=== PATIENT | female | born 1995 | race Hispanic/Latino ===

== ENCOUNTER 2024-01-27 20:54 | Emergency (ER) | payer SELFPAY ==
[2024-01-27 20:57] VITALS: BP 143/82; PULSE 98; RESP 16; TEMP 37.3; O2SAT 97; BMI 43.8
[2024-01-27 21:33] LABS: Bacteria Urine Many (>30); RBC Urine 5-10/HPF (0-5/HPF); Squamous Epithelial Cell Urine 10-30 /HPF (0-5/HPF); Urine Volume 10mL (spun); WBC Urine 30-100/HPF (0-5/HPF)
[2024-01-27 21:34] LABS: Mucus Urine 1+ (Negative)
--- NOTE | 2024-01-27 22:03 | ED.FEMALEGU ---
HPI - Female Genitourinary General Chief complaint: Urogenital-Female Stated complaint: UTI, back pain Time Seen by Provider: 01/27/24 21:04 Source: patient Mode of arrival: Ambulatory History of Present Illness HPI Narrative: 28-year-old female with no reported past medical history presents by private vehicle from home for 3-4 days of urinary frequency and 1 day of upper back pain. Patient states that she thinks that she has a urinary tract infection that she allowed to get out of control. She denies nausea, vomiting, fevers. Denies recent UTIs or recent antibiotic use. Related Data Previous Rx's Medication Instructions Recorded cefpodoxime 200 mg tablet 200 mg PO Q12H #20 tabs 01/27/24 Allergies Allergy/AdvReac Type Severity Reaction Status Date / Time No Known Drug Allergies Allergy Verified 01/27/24 21:03 Patient History tobacco type: vaping Substance Use Type: marijuana Exam Initial Vital Signs Initial Vital Signs: Vital Signs Temperature 99.2 F 01/27/24 20:57 Pulse Rate 98 H 01/27/24 20:57 Respiratory Rate 16 01/27/24 20:57 Blood Pressure 143/82 H 01/27/24 20:57 Pulse Oximetry 97 01/27/24 20:57 Oxygen Delivery Method Room Air 01/27/24 20:57 Const: Awake, alert, no acute distress, nontoxic appearing Cardiac: regular rate, regular rhythm RESP: unlabored, clear bilaterally, no wheezing GI: Soft, nontender, nondistended MSK back: Mild right-sided CVA tenderness Skin: Warm, Dry, intact, no rashes Neuro: AO x3, CN II-XII grossly intact, moves all extremities Course Orders Ordered: ED Orders 01/27/24 21:10 Urine Culture Stat Urine Microscopic Stat Discontinued Medications Ceftriaxone Sodium (Ceftriaxone 2,000 Mg Vial) 1,000 mg IM NOW ONE Stop: 01/27/24 22:03 Last Admin: 01/27/24 22:15 Dose: 1,000 mg Documented By: Lidocaine HCl (Lidocaine 1% (Pf) 5 Ml) 4.2 ml INJ NOW ONE Stop: 01/27/24 22:03 Last Admin: 01/27/24 22:14 Dose: 4.2 ml Documented By: Vital Signs Vital signs: Vital Signs - 8 hr 01/27/24 20:57 01/27/24 22:20 Temperature 99.2 F Pulse Rate 98 H 82 Respiratory Rate 16 16 Blood Pressure 143/82 H 127/83 Pulse Oximetry 97 97 Oxygen Delivery Method Room Air Room Air MDM - Female Genitourinary Lab Data Labs: Lab Results 01/27/24 Range/Units 21:10 Urine RBC 5-10/hpf H (0-5/HPF) Urine WBC 30-100/hpf H (0-5/HPF) Ur Squamous Epith Cells 10-30 /hpf H (0-5/HPF) Urine Bacteria Many (>30) H (None) Urine Mucus 1+ H (Negative) Vol Urine Centrifuged 10ml (spun) Point of Care Testing Test Results Negative Urine Dip Bedside Urine Glucose Negative Bedside Urine Bilirubin - Negative Bedside Urine Ketone - Negative Urine Specific [place] 1.020 Bedside Urine Occult Blood ++ Bedside Urine pH 6.0 Bedside Urine Protein +/- 15 Bedside Urine Urobilinogen - Negative Bedside Urine Nitrite - Negative Bedside Urine Leukocytes +/- 15 Esterase MDM Narrative Medical decision making narrative: Well-appearing patient with symptoms consistent with pyelonephritis. Hemodynamically stable, nontoxic in appearance. Urinalysis shows WBCs, many bacteria. Plan to treat empirically as pyelonephritis. Since pharmacies are currently closed and we do not have cefpodoxime tablets in our Pyxis an IM dose of Rocephin was ordered and prescription sent to pharmacy of choice. ED return precautions discussed at bedside. Patient expressed understanding of the plan and is in agreement at this time. All questions answered at the time of discharge. Discharge Plan Departure Patient Disposition: Home Clinical Impression: Pyelonephritis Instructions: DI for Kidney Infection Activity Restrictions/Additional Instructions: Make sure you drink plenty of fluids. If you have sexual intercourse urinate immediately afterwards. Finish all of your antibiotics even if you feel improved. Take Tylenol or ibuprofen per label instructions for pain Prescriptions: New cefpodoxime 200 mg tablet 200 mg PO Q12H Qty: 20 0RF Rx Instructions: must administer with a meal/food Stand Alone Forms: Patient Portal/API
[2024-01-27] MEDS: LIDOCAINE 1% (PF) 5 ML 4.2 ML INJ (22:14)
[2024-01-27] MEDS: cefTRIAXone 2,000 MG VIAL 1000 MG IM (22:15)
[2024-01-27 22:20] VITALS: BP 127/83; PULSE 82; RESP 16; O2SAT 97
== END 2024-01-27 22:21 | disposition home or self-care (01) ==
PROVIDERS: Emergency Provider Emergency Medicine
DX: N12 Tubulo-interstitial nephritis, not specified as acute or chronic (principal); M54.6 Pain in thoracic spine
CPT/HCPCS: 81003; 81015; 81025; 87077; 87086; 87147; 96372; 99283; J0696

== ENCOUNTER 2024-06-07 10:06 | Emergency (ER) | payer OTHER, SELFPAY ==
[2024-06-07 10:28] VITALS: BP 124/69; PULSE 67; RESP 17; TEMP 36.5; O2SAT 99; BMI 48.5
[2024-06-07] MEDS: ONDANSETRON 4 MG ODT SL (10:33)
[2024-06-07] MEDS: KETOROLAC 30 MG/ML VIAL IM (11:55)
--- NOTE | 2024-06-07 12:25 | ED_ITS ---
HPI - Back Pain/Injury <Marci Sierra PA-C - Last Filed: 06/07/24 19:24> General Chief Complaint: Back Pain/Injury Stated Complaint: Sciatica Flare up Time Seen by Provider: 06/07/24 11:54 Source: patient History of Present Illness HPI Narrative: Ms. Singer is a pleasant 28-year-old female with a past medical history of lumbar radiculopathy/sciatica, bipolar disorder, borderline personality disorder who presents to the emergency department for right ?sciatica flare? since yesterday. Patient states she used to get SI joint injections, epidural injections, other pain procedures for her chronic sciatica however since moving to this area last year she has not established with a spine doctor or primary care doctor. Reports that she has not had a sciatica flare in about 1 year however last night while playing pool, when she sat up from a chair she abruptly developed right-sided low back pain consistent with her prior sciatica pain. States the pain radiates down the right leg. Pain is worse with standing straight up. She denies any weakness, any bowel or bladder dysfunction, history of IV drug use, fevers, flank pain, dysuria, hematuria. She has not taken any medication for the pain. Related Data Previous Rx's Medication Instructions Recorded cefpodoxime 200 mg tablet 200 mg PO Q12H #20 tabs 01/27/24 acetaminophen 500 mg tablet 1,000 mg (2 x 500 mg) PO Q8H PRN 06/07/24 pain #20 tabs lidocaine 5 % topical patch 1 patch topical DAILY #15 ea 06/07/24 (Lidoderm) methocarbamol 500 mg tablet 500 mg PO TID PRN muscle spasm #14 06/07/24 tabs naproxen 500 mg tablet 500 mg PO BID PRN pain #20 tabs 06/07/24 prednisone 50 mg tablet 50 mg PO DAILY 5 days #5 tabs 06/07/24 Allergies Allergy/AdvReac Type Severity Reaction Status Date / Time No Known Drug Allergies Allergy Verified 06/07/24 10:28 Review of Systems <Marci Sierra PA-C - Last Filed: 06/07/24 19:24> Review of Systems ROS Unobtainable: All systems reviewed & are unremarkable except as noted in HPI and below Patient History <Marci Sierra PA-C - Last Filed: 06/07/24 19:24> Social History Smoking Status: Current every day smoker Smoking Status: Current every day smoker tobacco type: vaping Exam <Marci Sierra PA-C - Last Filed: 06/07/24 19:24> Narrative Exam Narrative: GENERAL: 28 year old patient appears stated age. Obese patient, in no acute distress. HEAD: Atraumatic. Normocephalic. NECK: Trachea midline. Cervical ROM intact. CARDIOVASCULAR: Regular rate and rhythm. RESPIRATORY: ?Nonlabored respirations. ?Speaking in clear, full sentences. ?Rory ar to auscultation. Breath sounds equal bilaterally. No wheezes, rales, or rhonchi. ? GASTROINTESTINAL: Abdomen soft, non-tender, nondistended. EXTREMITIES: No edema or joint tenderness. BACK: No midline spinal tenderness. Right paraspinal lumbar tenderness/SI joint tenderness, positive right straight leg raise. Bilateral legs are warm and well perfused. NEURO: AOx3. ?Clear speech. ?Sensation intact to light touch on bilateral lower extremities. SKIN: No rash or erythema of visible areas Initial Vital Signs Initial Vital Signs: Vital Signs Temperature 97.7 F 06/07/24 10:28 Pulse Rate 67 06/07/24 10:28 Respiratory Rate 17 06/07/24 10:28 Blood Pressure 124/69 06/07/24 10:28 Pulse Oximetry 99 06/07/24 10:28 Oxygen Delivery Method Room Air 06/07/24 10:28 <Enoc Blum MD - Last Filed: 06/09/24 12:40> Initial Vital Signs Initial Vital Signs: Vital Signs Temperature 97.7 F 06/07/24 10:28 Pulse Rate 67 06/07/24 10:28 Respiratory Rate 17 06/07/24 10:28 Blood Pressure 124/69 06/07/24 10:28 Pulse Oximetry 99 06/07/24 10:28 Oxygen Delivery Method Room Air 06/07/24 10:28 Course <Marci Sierra PA-C - Last Filed: 06/07/24 19:24> Orders Ordered: Discontinued Medications Ketorolac Tromethamine (Ketorolac 30 Mg/Ml Vial) 30 mg IM NOW ONE Stop: 06/07/24 11:49 Last Admin: 06/07/24 11:55 Dose: 30 mg Documented By: JIN Lidocaine (Lidocaine 5% Patch) 1 each TOP NOW ONE Stop: 06/07/24 12:35 Last Admin: 06/07/24 13:04 Dose: 1 each Documented By: JIN Ondansetron HCl (Ondansetron 4 Mg Odt) 4 mg SL NOW PRN PRN Reason: Nausea And Vomiting Last Admin: 06/07/24 10:33 Dose: 4 mg Documented By: MELVA Oxycodone/Acetaminophen (Oxycodone/Acetaminophen 5/325 Tablet) 1 tab PO NOW ONE Stop: 06/07/24 12:35 Last Admin: 06/07/24 13:04 Dose: 1 tab Documented By: JIN Vital Signs Vital signs: Vital Signs - 8 hr 06/07/24 15:22 Pulse Rate 64 Respiratory Rate 18 Blood Pressure 128/71 Pulse Oximetry 97 Oxygen Delivery Method Room Air <Enoc Blum MD - Last Filed: 06/09/24 12:40> Orders Ordered: Discontinued Medications Ketorolac Tromethamine (Ketorolac 30 Mg/Ml Vial) 30 mg IM NOW ONE Stop: 06/07/24 11:49 Last Admin: 06/07/24 11:55 Dose: 30 mg Documented By: JIN Lidocaine (Lidocaine 5% Patch) 1 each TOP NOW ONE Stop: 06/07/24 12:35 Last Admin: 06/07/24 13:04 Dose: 1 each Documented By: JIN Ondansetron HCl (Ondansetron 4 Mg Odt) 4 mg SL NOW PRN PRN Reason: Nausea And Vomiting Last Admin: 06/07/24 10:33 Dose: 4 mg Documented By: MELVA Oxycodone/Acetaminophen (Oxycodone/Acetaminophen 5/325 Tablet) 1 tab PO NOW ONE Stop: 06/07/24 12:35 Last Admin: 06/07/24 13:04 Dose: 1 tab Documented By: JIN Vital Signs Vital signs: Vital Signs - 8 hr 06/07/24 15:22 Pulse Rate 64 Respiratory Rate 18 Blood Pressure 128/71 Pulse Oximetry 97 Oxygen Delivery Method Room Air MDM - Back Pain/Injury <Marci Sierra PA-C - Last Filed: 06/07/24 19:24> Medical Records Attestation: I reviewed the patient's medical records. Lab Data Labs: Lab Results 06/07/24 Range/Units 14:28 Urine RBC 0-1/hpf (0-5/HPF) Urine WBC 5-10/hpf H (0-5/HPF) Ur Squamous Epith Cells 5-10 /hpf H (0-5/HPF) Urine Bacteria Moderate (10-30) H (None) Urine Mucus 2+ H (Negative) Ur Culture Indicated? Specimen cultured Vol Urine Centrifuged 10ml (spun) Point of Care Testing Test Results Negative Urine Dip Bedside Urine Glucose Negative Bedside Urine Bilirubin - Negative Bedside Urine Ketone +/- 5 Urine Specific [place] 1.025 Bedside Urine Occult Blood + Bedside Urine pH 6.0 Bedside Urine Urobilinogen - Negative Bedside Urine Nitrite - Negative Bedside Urine Leukocytes - Negative Esterase MDM Narrative Medical decision making narrative: 28-year-old female with a past medical history of lumbar radiculopathy/sciatica, bipolar disorder, borderline personality disorder who presents to the emergency department for right ?sciatica flare? since yesterday. Differential diagnosis includes but is not limited to lumbar radiculopathy, sacroiliitis, acute on chronic back pain, etc. On exam patient is in no acute distress, nontoxic appearing, vital signs within normal limits. She is in obvious discomfort going from a sitting to standing position due to right low back pain radiating down the right leg. No midline s jamilah tenderness or deformities, she does have tenderness on the right paraspinal lumbar region, SI joint region, positive right straight leg raise. No direct trauma, no weakness numbness or tingling, no bowel or bladder incontinence, no midline pain, no history of IV drug use or fevers, no indication for emergent imaging at this time. Patient initially treated with Toradol did not have improvement so oxycodone/acetaminophen in addition to Lidoderm was added on was significant improvement in pain, patient able to ambulate independently. Patient not having any urinary symptoms however urinal ysis was obtained and sent for culture to rule out contributing UTI, after shared decision-making with the patient we will not treat with antibiotics at this time however she is aware that if culture is positive antibiotics will need to be prescribed. We will treat right lumbar radiculopathy with prednisone, naproxen, Robaxin, acetaminophen, lidocaine patches. Also recommended rest, gentle stretching, TENs unit. Advised patient follow up with primary care provider and provided her with information for orthopedic spine surgeon for further management. Discussed ED return precautions, red flags. Patient verbalized understanding of all information is agreeable with the plan, she is feeling much better, ambulatory, stable for discharge home. <Enoc Blum MD - Last Filed: 06/09/24 12:40> Lab Data Labs: Lab Results 06/07/24 Range/Units 14:28 Urine RBC 0-1/hpf (0-5/HPF) Urine WBC 5-10/hpf H (0-5/HPF) Ur Squamous Epith Cells 5-10 /hpf H (0-5/HPF) Urine Bacteria Moderate (10-30) H (None) Urine Mucus 2+ H (Negative) Ur Culture Indicated? Specimen cultured Vol Urine Centrifuged 10ml (spun) Point of Care Testing Test Results Negative Urine Dip Bedside Urine Glucose Negative Bedside Urine Bilirubin - Negative Bedside Urine Ketone +/- 5 Urine Specific [place] 1.025 Bedside Urine Occult Blood + Bedside Urine pH 6.0 Bedside Urine Urobilinogen - Negative Bedside Urine Nitrite - Negative Bedside Urine Leukocytes - Negative Esterase Discharge Plan Departure Patient Disposition: Home Clinical Impression: Acute right lumbar radiculopathy Instructions: DI for Back Pain With Sciatica Activity Restrictions/Additional Instructions: Thank you for coming to the emergency department. Today you were evaluated for right-sided low back pain/sciatica. You were treated with pain medications and your urine test shows no signs of infection currently. I have prescribed you anti-inflammatory pain medication, muscle relaxer, topical numbing to help with your pain. It is important to also rest, relax, perform gentle stretching and avoid lying in 1 position for a prolonged period of time. You may also apply topical TENs unit. Please return to the emergency department if you develop any issues with your bowels or bladder, severe pain, weakness or any concerns. Please be aware that muscle relaxers, methocarbamol/robaxin, can make you drowsy and you should not work, operate heavy machinery, drive a car or drink alcohol while taking this medication. Orthopedic spine surgeon: I recommend you follow up with a customer solutions specialist for your chronic back pain. Dr. Enoc Flynn with [facility] is a local specialist. He is in [place]. Phone number [phone] Please follow up with your primary care doctor within the next 2-3 days for ER follow-up. (If you do not have a PCP you can call [phone]. ?to schedule an appointment with an [facility] Primary Care Provider) IF YOU DEVELOP ANY NEW OR WORSENING SYMPTOMS, RETURN TO THE ER! Please read the attached instructions, they highlight more specific treatments and interventions for you at home. Thank you for letting me participate in your care, Marci Sierra PA-C Prescriptions: New naproxen 500 mg tablet 500 mg PO BID PRN (Reason: pain) Qty: 20 0RF methocarbamol 500 mg tablet 500 mg PO TID PRN (Reason: muscle spasm) Qty: 14 0RF acetaminophen 500 mg tablet 1,000 mg PO Q8H PRN (Reason: pain) Qty: 20 0RF lidocaine [Lidoderm] 5 % adhesive patch,medicated 1 patch topical DAILY Qty: 15 0RF Rx Instructions: leave on most painful area for up to 12 hrs prednisone 50 mg tablet 50 mg PO DAILY 5 Days Qty: 5 0RF No Action cefpodoxime 200 mg tablet 200 mg PO Q12H Qty: 20 0RF Rx Instructions: must administer with a meal/food Stand Alone Forms: Patient Portal/API/Survey, Work Release Note ED Sign-out <Enoc Blum MD - Last Filed: 06/09/24 12:40> [facility] Att[facility]: I was immediately available in the department for consultation. ?This documentation has been reviewed and I agree with assessment and plan. Supervised by Enoc Blum MD
[2024-06-07] MEDS: LIDOCAINE 5% PATCH 1 EACH TOP (13:04)
[2024-06-07] MEDS: OXYCODONE/ACETAMINOPHEN 5/325 TABLET 1 TAB PO (13:04)
[2024-06-07 15:13] LABS: Bacteria Urine Moderate (10-30); RBC Urine 0-1/HPF (0-5/HPF); Squamous Epithelial Cell Urine 5-10 /HPF (0-5/HPF); Urine Volume 10mL (spun); WBC Urine 5-10/HPF (0-5/HPF)
[2024-06-07 15:14] LABS: Culture Indicated Urine Specimen Cultured; Mucus Urine 2+ (Negative)
[2024-06-07 15:22] VITALS: BP 128/71; PULSE 64; RESP 18; O2SAT 97
== END 2024-06-07 15:27 | disposition home or self-care (01) ==
PROVIDERS: Emergency Provider Physician Assistant
DX: M54.16 Radiculopathy, lumbar region (principal)
CPT/HCPCS: 81003; 81015; 81025; 87086; 87147; 96372; 99284; J1885

== ENCOUNTER → 2025-01-26 13:26 | Outpatient (CLI) | payer OTHER, SELFPAY ==
[2025-01-26 14:28] LABS: Hemoglobin A1C% w Est Avg Glu 5.8 % (4.0-6.0)
[2025-01-26 15:17] LABS: Cholesterol 176 mg/dL (140-199); HDL Cholesterol 54 mg/dL (40-60); Triglycerides 108 mg/dL (35-150)
== END ==
PROVIDERS: PCP Family Medicine; Referring Provider Family Medicine; Visit Provider Family Medicine
DX: F90.9 Attention-deficit hyperactivity disorder, unspecified type (principal); Z78.9 Other specified health status; F41.9 Anxiety disorder, unspecified; Z76.89 Persons encountering health services in other specified circumstances; F31.9 Bipolar disorder, unspecified; F60.3 Borderline personality disorder; F43.10 Post-traumatic stress disorder, unspecified
CPT/HCPCS: 36415; 80061; 83036